=== PATIENT | female | born 1960 | race Caucasian/White ===

== ENCOUNTER 2020-05-02 08:15 | Emergency (ER) | payer OTHER ==
[~2020-05-02] VITALS: Ht 172.7 cm; Wt 70.3 kg
[~2020-05-02 08:15] MED LIST: CALTRATE 600 +1 TAB PO; MULTI VITAMINS1 TAB PO
[2020-05-02] MEDS ORDERED: Motrin,Rufen800 MG PO (10:54)
[2020-05-02] MEDS ORDERED: CYCLOBENZAPRINE10 MG PO (10:54)
== END 2020-05-02 10:56 | disposition home or self-care (01) ==
LOC: ED 08:15
DX: S16.1XXA Strain of muscle, fascia and tendon at neck level, initial encounter (principal); S46.912A Strain of unspecified muscle, fascia and tendon at shoulder and upper arm level, left arm, initial encounter; Z79.899 Other long term (current) drug therapy; V89.2XXA Person injured in unspecified motor-vehicle accident, traffic, initial encounter; Y93.89 Activity, other specified; Y92.89 Other specified places as the place of occurrence of the external cause; Y99.8 Other external cause status

== ENCOUNTER → 2020-06-05 | Outpatient (CLI) | payer SELFPAY ==
[~2020-06-05] MED LIST changes: +CYCLOBENZAPRINE10 MG PO; +Motrin,Rufen800 MG PO
== END | disposition home or self-care (01) ==
LOC: RAD 09:55
PROVIDERS: ATTEND Chiropractor
DX: M54.5 Low back pain (principal)

== ENCOUNTER → 2020-09-04 | Outpatient (CLI) | payer SELFPAY | END | disposition home or self-care (01) | LOC: US 07:13 | PROVIDERS: ATTEND Nurse Practitioner Family | DX: D25.2 Subserosal leiomyoma of uterus (principal); N83.201 Unspecified ovarian cyst, right side ==